=== PATIENT | female | born 1970 | race Asian ===

== ENCOUNTER 2017-11-25 11:56 | Emergency (ER) | payer BC ==
[~2017-11-25] VITALS: Ht 154.9 cm; Wt 92.7 kg
[~2017-11-25 11:56] MED LIST: Advil,Nuprin,Motrin PO; CIPRO500 MG PO; NORVASC2.5 MG PO; PYRIDIUM200 MG PO; TOPROL XL50 MG PO; Zestril,Prinivil PO
[2017-11-25 13:20] LABS: BASOPHIL (%) 0.2 % (0-1); EOSINOPHIL COUNT 0.1 K/uL (0-0.3); HEMATOCRIT 42.7 % (36.0-46.0); HEMOGLOBIN 13.6 G/DL (11.9-15.5); LYMPHOCYTE (%) 10.5 % (15-42); LYMPHOCYTE COUNT 1.5 K/uL (1.0-2.8); MCH 24.7 PG (29.0-34.0); MCHC 31.9 G/DL (30.0-36.0); MCV 77.5 FL (83-99); MONOCYTE COUNT 0.7 K/uL (0-0.8); NEUTROPHIL (%) 82.3 % (45-76); NEUTROPHIL COUNT 11.9 K/uL (1.8-6.4); PLATELET COUNT 349 K/uL (156-360); RBC DIS.WIDTH-CV 13.1 % (11.8-14.6); RBC DIS.WIDTH-SD 36.9 % (39-53); RED BLOOD COUNT 5.51 M/uL (3.80-5.20); WHITE BLOOD COUNT 14.5 K/uL (4.1-10.2)
[2017-11-25 13:40] LABS: CHLORIDE 103 mEq/L (99-109); POTASSIUM 4.2 mEq/L (3.7-5.4); SODIUM 140 mEq/L (136-147)
[2017-11-25 13:42] LABS: GLUCOSE 166 mg/dL (70-99)
[2017-11-25 13:45] LABS: CREATININE 0.7 mg/dL (0.6-1.3); GFR ESTIMATE (CALCULATED) > 59 mL/min/
[2017-11-25 13:46] LABS: UREA NITROGEN (BUN) 15 mg/dL (9-23)
[2017-11-25] MEDS ORDERED: MECLIZINE HCL25 MG PO (14:34)
[2017-11-25 15:00] VITALS: BP 118/81
== END 2017-11-25 15:28 | disposition home or self-care (01) ==
LOC: EME 11:56
PROVIDERS: Emergency Medicine
DX: R42 Dizziness and giddiness (principal); I10 Essential (primary) hypertension; J45.909 Unspecified asthma, uncomplicated; Z87.891 Personal history of nicotine dependence
CPT/HCPCS: 70450; 80048; 85025; 93005; 99281; 99284; J2405; J2765